=== PATIENT | male | born 2000 | race Caucasian/White ===

== ENCOUNTER 2021-02-12 17:57 | Emergency (ER) | payer SELFPAY ==
[~2021-02-12] VITALS: Ht 182.9 cm; Wt 100.0 kg
[2021-02-12] MEDS ORDERED: HYDROCODONE/ACETAMINOPHEN 10/325MG TABLET PO ONE (19:00)
[2021-02-12] MEDS ORDERED: LIDOCAINE HCL/EPINEPHRINE 1%-EPI 1:100,000 50 ML VIAL INFIL ONE (20:30)
[2021-02-12] MEDS ORDERED: FENTANYL CITRATE/PF 50MCG/ML 2ML VIAL IV ONE (20:30)
[2021-02-12] MEDS ORDERED: LIDOCAINE HCL/EPINEPHRINE 1%-EPI 1:100,000 20 ML VIAL INFIL NR (21:00)
[2021-02-12] MEDS ORDERED: MIDAZOLAM HCL 2 MG/2 ML VIAL IV ONE (21:15)
[2021-02-12] MEDS ORDERED: MORPHINE SULFATE 4 MG/ML CPJ (NOT FOR IM USE) IV ONE (23:45)
[2021-02-12 23:51] VITALS: BP 145/97
[2021-02-12] MEDS ORDERED: IBUP-2029 PO (23:56)
[2021-02-12] MEDS ORDERED: HYDR-4001 MT (23:56)
[2021-02-13] MEDS ORDERED: HYDR-4001 MT (00:01)
== END 2021-02-13 00:20 | disposition home or self-care (01) ==
LOC: ER 17:57
DX: S52.92XA Unspecified fracture of left forearm, initial encounter for closed fracture (principal); V49.49XA Driver injured in collision with other motor vehicles in traffic accident, initial encounter; Y93.89 Activity, other specified; Y92.89 Other specified places as the place of occurrence of the external cause; Y99.8 Other external cause status; F41.9 Anxiety disorder, unspecified
CPT/HCPCS: 24650; 73090; 73110; 73130; 73552; 73630; 96374; 96375; 99284; J2250; J2270; J3010; J3490